=== PATIENT | female | born 1990 | race Asian ===

== ENCOUNTER 2019-06-29 02:10 | Emergency (ER) | payer MEDICAID, OTHER ==
[~2019-06-29] VITALS: Ht 157.5 cm; Wt 81.6 kg
[2019-06-29 02:20] VITALS: BP 159/94
--- NOTE | 2019-06-29 02:25 | NUR ---
28/F FROM TRIAGE FOR NEEDLESTICK WHILE ASSITING IN OPERATION. NO OPEN WOUND NOTED. NO BLEEDING NOTED. IN FAST TRACK CHAIR FOR MSE.
[2019-06-29 03:58] VITALS: BP 137/86
--- NOTE | 2019-06-29 03:58 | NUR ---
Patient discharged with v/s stable. Written and verbal after care instructions given and explained. Patient verbalized understanding. Ambulatory with steady gait. All questions addressed prior to discharge. Advised to follow up with PMD.
[2019-06-30 09:06] LABS: HEPATITIS B SURFACE ANTIGEN Negative (Negative)
== END 2019-06-29 03:58 | disposition home or self-care (01) ==
LOC: MED 02:10
DX: M79.644 Pain in right finger(s) (principal); W46.1XXA Contact with contaminated hypodermic needle, initial encounter; Y93.89 Activity, other specified; Y92.89 Other specified places as the place of occurrence of the external cause; Y99.8 Other external cause status
CPT/HCPCS: 36415; 86592; 86702; 86803; 87340; 96374; 99283; 99284